=== PATIENT | female | born 1955 | race Caucasian/White ===

== ENCOUNTER 2017-09-30 09:38 | Emergency (ER) | payer SELFPAY ==
--- NOTE | 2017-09-30 10:40 | RAD ---
LEFT FEMUR TWO VIEWS: History: Injury. Fall. Pain. Comparison: None. FINDINGS: Two views of the left femur demonstrates a comminuted spiral fracture along the humeral diaphysis. Th ere is displacement. IMPRESSION: Left humerus fracture. POS: ELI
== END 2017-09-30 11:48 | disposition home or self-care (01) ==
LOC: SCSER 09:38
DX: S42.302A Unspecified fracture of shaft of humerus, left arm, initial encounter for closed fracture (principal); W18.30XA Fall on same level, unspecified, initial encounter; Y93.02 Activity, running
CPT/HCPCS: 24500